=== PATIENT | female | born 1970 | race African-American/Black ===

== ENCOUNTER 2016-06-07 10:32 | Emergency (ER) | payer OTHER ==
[2016-06-07 11:04] LABS: HEMATOCRIT 41.6 % (36.0-48.0); HEMOGLOBIN 14.5 g/dL (12-16); MCH 30.5 pg (26.0-34.0); MCHC 34.9 g/dL (31.0-37.0); MCV 87.4 fL (80.0-100.0); MEAN PLATELET VOLUME 10.3 fL (7.4-10.4); PLATELET COUNT 310 10x3/uL (130-400); RBC 4.76 10x6/uL (4.00-5.40); RDW 12.9 % (11.5-14.5); WBC 12.6 10x3/uL (4.8-10.8)
[2016-06-07 11:24] LABS: ALBUMIN 3.9 g/dL (3.4-5.0); BILIRUBIN - TOTAL 0.68 mg/dL (0.2-1.3); CALCIUM 9.5 mg/dL (8.5-10.1); CARBON DIOXIDE 26.6 mmol/L (21.0-32.0); POTASSIUM - SERUM 3.6 mmol/L (3.5-5.1)
[2016-06-07 12:04] LABS: EOSINOPHILS 2 % (0-7); LYMPHOCYTES 45 % (15-50); MONOCYTES 7 % (2-11); NEUTROPHILS 43 % (40-80); PLATELET ESTIMATE NORMAL
== END 2016-06-07 14:05 | disposition home or self-care (01) ==
LOC: D.ER 10:32
PROVIDERS: Family Medicine
DX: J44.1 Chronic obstructive pulmonary disease with (acute) exacerbation (principal); I10 Essential (primary) hypertension; M26.609 Unspecified temporomandibular joint disorder, unspecified side

== ENCOUNTER 2016-12-10 10:27 | Emergency (ER) | payer MEDICAID ==
[2016-12-10 11:02] LABS: APPEARANCE CLEAR (CLEAR); BILIRUBIN NEGATIVE (NEGATIVE); COLOR STRAW (YELLOW); GLUCOSE NEGATIVE (NEGATIVE); KETONE NEGATIVE (NEGATIVE); NITRITE NEGATIVE (NEGATIVE); PROTEIN NEGATIVE (NEGATIVE); SPECIFIC GRAVITY 1.005 (1.005-1.020); UROBILINOGEN NORMAL (NORMAL)
[2016-12-10 11:09] LABS: UDS - AMPHET NEGATIVE QUAL (NEGATIVE); UDS - BARB NEGATIVE QUAL (NEGATIVE); UDS - BENZO NEGATIVE QUAL (NEGATIVE); UDS - COCAINE POSITIVE QUAL (NEGATIVE); UDS - OPIATE NEGATIVE QUAL (NEGATIVE); UDS - PCP NEGATIVE QUAL (NEGATIVE); UDS - THC NEGATIVE QUAL (NEGATIVE)
[2016-12-10 11:10] LABS: BASOPHILS 0.2 % (0-2); EOSINOPHILS 0.9 % (0-7); HEMATOCRIT 42.6 % (36.0-48.0); IMMATURE GRANULOCYTES 0.4 % (0-5); LYMPHOCYTES 27.6 % (15-50); MCH 31.3 pg (26.0-34.0); MCHC 35.2 g/dL (31.0-37.0); MCV 88.8 fL (80.0-100.0); MEAN PLATELET VOLUME 9.9 fL (7.4-10.4); MONOCYTES 10.7 % (2-11); NEUTROPHILS 60.2 % (40-80); PLATELET COUNT 281 10x3/uL (130-400); RDW 14.1 % (11.5-14.5); WBC 9.3 10x3/uL (4.8-10.8)
[2016-12-10 11:20] LABS: ANION GAP 13.1 mmol/L (8-16); BILIRUBIN - TOTAL 0.28 mg/dL (0.2-1.3); CALCIUM 9.5 mg/dL (8.5-10.1); CARBON DIOXIDE 30.9 mmol/L (21.0-32.0); CREATININE - SERUM 0.9 mg/dL (0.6-1.3); PROTEIN - SERUM 8.2 g/dL (6.4-8.2)
== END 2016-12-10 12:40 | disposition home or self-care (01) ==
LOC: D.ER 10:27
PROVIDERS: Emergency Medicine
DX: F33.9 Major depressive disorder, recurrent, unspecified (principal); F41.9 Anxiety disorder, unspecified; R45.851 Suicidal ideations; J44.9 Chronic obstructive pulmonary disease, unspecified; I10 Essential (primary) hypertension

== ENCOUNTER 2017-07-19 07:37 | Emergency (ER) | payer OTHER ==
[2017-07-19 09:53] LABS: BASOPHILS 0.5 % (0-2); EOSINOPHILS 4.7 % (0-7); HEMATOCRIT 41.4 % (36.0-48.0); HEMOGLOBIN 14.3 g/dL (12-16); IMMATURE GRANULOCYTES 0.4 % (0-5); LYMPHOCYTES 26.9 % (15-50); MCH 30.4 pg (26.0-34.0); MCHC 34.5 g/dL (31.0-37.0); MCV 87.9 fL (80.0-100.0); MEAN PLATELET VOLUME 10.6 fL (7.4-10.4); MONOCYTES 13.4 % (2-11); NEUTROPHILS 54.1 % (40-80); PLATELET COUNT 227 10x3/uL (130-400); RBC 4.71 10x6/uL (4.00-5.40); WBC 7.9 10x3/uL (4.8-10.8)
[2017-07-19 10:11] LABS: ALBUMIN 2.8 g/dL (3.4-5.0); ALKALINE PHOSPHATASE 66 U/L (46-116); ALT (SGPT) 21 U/L (10-68); CALC OSMOLALITY 280 mosm/kg (275-300); CALCIUM 8.7 mg/dL (8.5-10.1); CARBON DIOXIDE 27.3 mmol/L (21.0-32.0); CHLORIDE - SERUM 108 mmol/L (98-107); CREATININE - SERUM 0.8 mg/dL (0.6-1.3); GLUCOSE 71 mg/dL (74-106); POTASSIUM - SERUM 4.1 mmol/L (3.5-5.1); PROTEIN - SERUM 6.7 g/dL (6.4-8.2); SODIUM 142 mmol/L (136-145); UREA NITROGEN 13 mg/dL (7-18); eGFR NON AFRICAN AMERICAN 82 mL/min (90-120)
[2017-07-19 10:11] LABS: UDS - AMPHET NEGATIVE QUAL (NEGATIVE); UDS - BARB NEGATIVE QUAL (NEGATIVE); UDS - BENZO NEGATIVE QUAL (NEGATIVE); UDS - COCAINE POSITIVE QUAL (NEGATIVE); UDS - OPIATE NEGATIVE QUAL (NEGATIVE); UDS - PCP NEGATIVE QUAL (NEGATIVE); UDS - THC NEGATIVE QUAL (NEGATIVE)
[2017-07-19 10:18] LABS: APPEARANCE HAZY (CLEAR); BILIRUBIN NEGATIVE (NEGATIVE); COLOR YELLOW (YELLOW); GLUCOSE NEGATIVE (NEGATIVE); KETONE NEGATIVE (NEGATIVE); NITRITE NEGATIVE (NEGATIVE); PROTEIN NEGATIVE (NEGATIVE); SPECIFIC GRAVITY 1.025 (1.005-1.020); UROBILINOGEN NORMAL (NORMAL)
[2017-07-19 10:20] LABS: CREATINE KINASE 129 UL (21-215); LIPASE 201 U/L (73-393); PHENYTOIN (DILANTIN) 0.6 ug/mL (10.0-20.0); PRO BNP 76 pg/mL (0-125); TROPONIN-I 0.022 ng/mL (0.000-0.060)
== END 2017-07-19 10:35 | disposition home or self-care (01) ==
LOC: D.ER 07:37
PROVIDERS: Family Medicine
DX: S29.012A Strain of muscle and tendon of back wall of thorax, initial encounter (principal); X58.XXXA Exposure to other specified factors, initial encounter; Y93.9 Activity, unspecified; Y92.9 Unspecified place or not applicable; F14.10 Cocaine abuse, uncomplicated

== ENCOUNTER 2017-10-05 21:11 | Emergency (ER) | payer OTHER ==
[~2017-10-05] VITALS: Ht 157.5 cm; Wt 52.3 kg
[2017-10-05 21:24] VITALS: Ht 157.5 cm; Wt 52.3 kg
[2017-10-05] MEDS ORDERED: CATAPRES0.1 MG PO (21:24)
[2017-10-05] MEDS ORDERED: SEROQUEL300 MG PO (21:27)
[2017-10-05] MEDS ORDERED: SEROQUEL300 MG (21:27)
[2017-10-05] MEDS ORDERED: DILANTIN100 MG PO (21:27)
[2017-10-05] MEDS ORDERED: ULTRAM50 MG PO (23:33)
[2017-10-05] MEDS ORDERED: CLEOCIN HCL300 MG PO (23:33)
[2017-10-05] MEDS ORDERED: FLAGYL500 MG PO (23:33)
[2017-10-06 00:38] VITALS: BP 163/86
== END 2017-10-06 00:22 | disposition home or self-care (01) ==
LOC: D.ER 21:11
DX: K05.00 Acute gingivitis, plaque induced (principal); K08.89 Other specified disorders of teeth and supporting structures; I10 Essential (primary) hypertension; F17.200 Nicotine dependence, unspecified, uncomplicated

== ENCOUNTER 2018-03-18 10:58 | Emergency (ER) | payer MEDICAID ==
[~2018-03-18] VITALS: Ht 157.5 cm; Wt 60.0 kg
[~2018-03-18 10:58] MED LIST: CATAPRES0.1 MG PO; CLEOCIN HCL300 MG PO; DILANTIN100 MG PO; FLAGYL500 MG PO; SEROQUEL300 MG; SEROQUEL300 MG PO; ULTRAM50 MG PO
[2018-03-18 11:02] VITALS: Ht 157.5 cm; Wt 60.0 kg
[2018-03-18 12:02] LABS: BASOPHILS 0.5 % (0-2); EOSINOPHILS 0 % (0-7); HEMATOCRIT 51.7 % (36.0-48.0); HEMOGLOBIN 18.1 g/dL (12-16); IMMATURE GRANULOCYTES 1.1 % (0-5); LYMPHOCYTES 32.6 % (15-50); MCH 30.5 pg (26.0-34.0); MEAN PLATELET VOLUME 10.1 fL (7.4-10.4); MONOCYTES 11.7 % (2-11); NEUTROPHILS 54.1 % (40-80); PLATELET COUNT 234 10x3/uL (130-400); RBC 5.94 10x6/uL (4.00-5.40); RDW 13.4 % (11.5-14.5); WBC 9.6 10x3/uL (4.8-10.8)
[2018-03-18 12:14] LABS: APPEARANCE CLEAR (CLEAR); COLOR YELLOW (YELLOW); GLUCOSE NEGATIVE (NEGATIVE); KETONE NEGATIVE (NEGATIVE); NITRITE NEGATIVE (NEGATIVE); PROTEIN NEGATIVE (NEGATIVE); SPECIFIC GRAVITY 1.015 (1.005-1.020); UROBILINOGEN NORMAL (NORMAL)
[2018-03-18 12:14] LABS: ALBUMIN 2.8 g/dL (3.4-5.0); ALKALINE PHOSPHATASE 53 U/L (46-116); ALT (SGPT) 18 U/L (10-68); BILIRUBIN - TOTAL 0.15 mg/dL (0.2-1.3); CALC OSMOLALITY 278 mosm/kg (275-300); CALCIUM 8.7 mg/dL (8.5-10.1); CARBON DIOXIDE 23.8 mmol/L (21.0-32.0); CHLORIDE - SERUM 105 mmol/L (98-107); CREATININE - SERUM 0.9 mg/dL (0.6-1.3); GLUCOSE 85 mg/dL (74-106); MAGNESIUM - SERUM 1.9 mg/dL (1.8-2.4); PHENYTOIN (DILANTIN) < 0.5 ug/mL (10.0-20.0); POTASSIUM - SERUM 4.8 mmol/L (3.5-5.1); PROTEIN - SERUM 6.6 g/dL (6.4-8.2); SODIUM 139 mmol/L (136-145); UREA NITROGEN 17 mg/dL (7-18); eGFR NON AFRICAN AMERICAN 71 mL/min (90-120)
[2018-03-18 12:15] LABS: BILIRUBIN NEGATIVE (NEGATIVE)
[2018-03-18 12:24] LABS: UDS - AMPHET NEGATIVE QUAL (NEGATIVE); UDS - BARB NEGATIVE QUAL (NEGATIVE); UDS - BENZO NEGATIVE QUAL (NEGATIVE); UDS - COCAINE POSITIVE QUAL (NEGATIVE); UDS - OPIATE NEGATIVE QUAL (NEGATIVE); UDS - PCP NEGATIVE QUAL (NEGATIVE); UDS - THC NEGATIVE QUAL (NEGATIVE)
[2018-03-18] MEDS ORDERED: DILANTIN100 MG PO (12:48)
[2018-03-18 16:54] LABS: PHENYTOIN (DILANTIN) < 10.0 ug/mL (10.0-20.0)
[2018-03-18 19:13] VITALS: BP 152/96
== END 2018-03-18 19:16 | disposition home or self-care (01) ==
LOC: D.ER 10:58
PROVIDERS: Emergency Medicine
DX: G40.909 Epilepsy, unspecified, not intractable, without status epilepticus (principal); F14.10 Cocaine abuse, uncomplicated; Z91.14 Patient's other noncompliance with medication regimen; I10 Essential (primary) hypertension; F17.200 Nicotine dependence, unspecified, uncomplicated

== ENCOUNTER 2018-04-13 22:08 | Observation (INO) | payer MEDICAID ==
[~2018-04-13] VITALS: Ht 157.5 cm; Wt 60.0 kg
--- NOTE | ~2018-04-13 | HEMODYNAMI ---
PATIENT:ANA GRACE MEDICAL RECORD: [id number] : 72 [facility] ADMISSION DATE: 04/13/18 Generatedon:04/15/20187:33 Patient name: ANA GRACE Patient #: [id number] SSN: D OB: 1970 Date of study: 04/15/2018 Page: Of Hemodynamic Procedure Report Patient Data Patient Demographics Procedure consent was obtained First Name: ANA Gender: Female Last Name: SANJAY : 1970 Middle Initial: M Age: 47 year(s) Patient #: [id number] Race: Black Additional ID: [id number] Contact details [address]: [address] [place] [address] [address] State: [place] City: [place] Zip code: [address] Past Medical History Allergies Allergen Reaction Date Comments Reported Penicillins 04/15/2018 Admission Admission Data Admission Date: 04/13/2018 Admission Time: 23:38 Room #: [facility] Procedure Procedure Types Cath Procedure Diagnostic Procedure C LHC w/Coronaries Procedure Description Procedure Date Procedure Date: 04/15/2018 Procedure Start Time: 7:20 Procedure End Time: 7:33 Procedure Staff Name Function Kai Fernandez MD Performing Physician Mary Beth Campbell RT Monitor Marlee Brandon RN Nurse Iram Guardado RT Scrub Fani Carlin RT Scrub Procedure Data Cath Procedure Fluoroscopy Diagnostic fluoroscopy Total fluoroscopy Time: 2.5 time: 2.5 min min Diagnostic fluoroscopy Total fluoroscopy dose: 202 dose: 202 mGy mGy Contrast Material Contrast Material Type Amount (ml) Isovue 300 65 Entry Location Entry Primary Successful Side Size Upsize Upsize Entry Closure Finney ccessful Closure Location (Fr) 1 (Fr) 2 (Fr) Remarks Device Remarks Radial Right 6 Fr Mechanical artery Short Compression Estimated blood loss: 5 ml Diagnostic catheters Device Type Used For End Catheter Placement DIAGNOSTIC Nixon 110cm 5 LV Angiography Fr catheter ([id number]) DIAGNOSTIC Nixon 110cm 5 Left Coronary Fr catheter ([id number]) Angiography DIAGNOSTIC Nixon 110cm 5 Right Coronary Fr catheter ([id number]) Angiography Procedure Complications No complications Procedure Medications Medication Administration Route Dosage 0.9% NaCl I.V. 100 ml/hr Oxygen etCO2 Nasal cannula 2 l/min Lidocaine 2% Heparin Flush Bag added to field 2 bags (1000units/500ml NS) Radial Cocktail added to field 1 syringe (Verapomil 2mg/Nitro 400mcg/Heparin 1500units) Versed I.V. 2 mg Fentanyl I.V. 50 mcg Versed I.V. 1 mg Fentanyl I.V. 25 mcg Hemodynamics Rest Heart Rate: 65 (bpm) Pressure Samples Time Site Value (mmHg) Purpose Heart Use Rate(bpm) 7:23 LV 112/-3,11 EDP 87 7:24 AO 121/65(88) Pullback 80 7:24 LV 108/-4,11 Pullback 80 Gradients Valve Time Site 1 Site 2 Mean SEP/DFP Peak To Heart Use (mmHg) (sec/min) Peak Rate (mmHg) (bpm) Aortic 7:24 LV AO 0 6 0 80 108/-4,11 121/65(88) Calculations Valve P-P Mean Valve Index Valve Source Name Gradient Area Flow (cm2) Aortic 0 0 0 0 Snapshots Pre Cath Intra NCS Post Cath Vital Signs Time Heart Resp SPO2 etCO2 NIBP (mmHg) Rhythm Pain Sedation Rate (ipm) (%) (mmHg) Status Level (bpm) 7:05:58 64 16 100 37.8 172/95(142) NSR 0 (11) 10(A) , No pain 7:10:14 69 19 100 37.8 161/95(131) NSR 0 (11) 10(A) , No pain 7:14:30 67 16 100 21.2 146/85(117) NSR 0 (11) 10(A) , No pain 7:18:50 67 12 100 37.1 145/77(107) NSR 0 (11) 10(A) , No pain 7:23:09 75 12 100 34 122/78(94) NSR 0 (11) 10(A) , No pain 7:27:21 72 11 99 29.5 118/72(99) NSR 0 (11) 9(A) , No pain 7:31:30 72 11 100 11.3 125/74(105) NSR 0 (11) 10(A) , No pain Medications Time Medication Route Dose Verified Delivered Reason Notes Eff ectiveness by by 7:03:53 0.9% NaCl I.V. 100 Kai Marlee used for ml/hr Jim Brandon children's entertainer 7:04:00 Oxygen etCO2 2 l/min Kai Marlee used for Nasal Jim Brandon procedure cannula RN 7:04:34 Lidocaine 2% Kai Kai used for Jim Fernandez MD procedure 7:04:39 Heparin Flush added 2 bags Kai Kai used for Bag to Jim Fernandez MD procedure (1000units/500ml field NS) 7:04:48 Radial Cocktail added 1 Kai Kai used for (Verapomil to syringe Jim Fernandez MD procedure 2mg/Nitro field 400mcg/Heparin 1500units) 7:17:14 Versed I.V. 2 mg Kai Marlee for Jim Brandon sedation RN 7:17:21 Fentanyl I.V. 50 mcg Kai Marlee for Jim Brandon sedation RN 7:23:00 Versed I.V. 1 mg Kai Marlee for Jim Brandon sedation RN 7:23:05 Fentanyl I.V. 25 mcg Kai Marlee for Jim Brandon sedation fish hatchery superintendent Log Time Note 6:42:48 Time tracking: Regular hours (M-F 7:00 - 5:00) 6:42:53 Plan of Care:Hemodynamics will remain stable., Cardiac rhythm will remain stable., Comfort level will be maintained., Respiratory function will remain adequate., Patient/ family verbilizes understanding of procedure., Procedure tolerated without complication., Recovers from procedure without complications.. 6:44:23 Mary Beth Counts RT(R) sent for patient. Start room use. 6:55:39 Patient received from Med II to CCL 1 Alert and oriented. Tansferred to table in Supine position. 6:55:41 Warm blankets applied, and yunior hugger turned on for patient comfort. 6:55:41 Correct patient and procedure confirmed by team. 6:55:43 Signed procedure consent form obtained from patient. 6:55:44 ECG and BP/O2 sat monitors applied to patient. 6:58:44 Full Disclosure recording started 7:00:39 Rhythm: sinus rhythm 7:00:40 Vital chart was started 7:00:47 Baseline sample Acquired. 7:00:50 Baseline sample Acquired. 7:01:00 H&P Date Dictated: 04/15/2018 Within 30 days and on chart.. 7:01:02 Pre-procedure instructions explained to patient. 7:01:02 Pre-op teaching completed and patient verbalized understanding. 7:01:10 Family unavailable. 7:01:15 Patient NPO since Midnight. 7:01:25 Patient allergic to Penicillins 7:01:28 Is the patient allergic to Iodine/contrast media? No. 7:01:46 Was the patient premedicated? No 7:01:50 Is patient on blood thinner?No 7:01:52 Patient diabetic? No. 7:01:53 ----Pre-sedation anethsthesia assessment.---- 7:01:56 Previous problem with sedation/anesthesia? No ? 7:02:00 Snore? No 7:02:02 Sleep apnea? No 7:02:04 Deviated septum? No 7:02:06 Opens mouth fully? Yes 7:02:07 Sticks out tongue? Yes 7:02:10 Airway obstruction? No ? 7:02:14 Dentures? No ? 7:02:22 Pre procedure: right dorsailis pedis pulse 1+ Palpable, but thready & weak; easily obliterated 7:02:27 Modified Shawn's test Ulnar < 7 seconds 7:02:31 Patient pain scale 0/10 ?. 7:02:42 IV patent on arrival in left antecubital with 0.9% NaCl at 10ml/hr. 7:03:04 Lab results completed and on chart. 7:03:07 Right Radial & Right Groin area was prepped with chlora-prep and draped in sterile fashion 7:03:08 Alarms reviewed by R. N. 7:03:09 Sharps counted by scrub and verified by R.N. 7:03:14 Physician paged 7:03:53 0.9% NaCl 100 ml/hr I.V. was administered by Marlee Brandon RN; used for procedure; 7:04:00 Oxygen 2 l/min etCO2 Nasal cannula was administered by Marlee Brandon RN; used for procedure; 7:04:34 Lidocaine 2% was administered by Kai Fernandez MD; used for procedure; 7:04:39 Heparin Flush Bag (1000units/500ml NS) 2 bags added to field was administered by Kai Fernandez MD; used for procedure; 7:04:48 Radial Cocktail (Verapomil 2mg/Nitro 400mcg/Heparin 1500units) 1 syringe added to field was administered by Kai Fernandez MD; used for procedure; 7:06:03 Use device set Radial Dx or PCI 7:06:04 ACIST Syringe (26912) opened to sterile field. 7:06:05 Medline Cath Pack ([id number]) opened to sterile field. 7:06:05 Bag Decanter (2002S) opened to sterile field. 7:06:06 DIAGNOSTIC WIRE .035 260cm J wire (978146) opened to sterile field. 7:06:06 ACIST Hand Control (05941) opened to sterile field. 7:06:07 ACIST Manifold (21623) opened to sterile field. 7:06:07 Tegaderm 4 x 4 (1626W) opened to sterile field. 7:06:08 MBrace Wrist Support ([id number]) opened to sterile field. 7:06:09 SHEATH 6FR Slender (44-3860) opened to sterile field. 7:16:34 Final Timeout: patient, procedure, and site verified with staff and physician. All members of the team are in agreement. 7:16:36 Right Radial site verified by team. 7:16:40 Fire Safety Assessment: A--An alcohol-based skin anteseptic being used preoperatively., C--Open oxygen or nitrous oxide is being used., D--An ESU, laser, or fiber-optic light is being used. 7:16:44 Physical assessment completed. ASA score P 2 - A patient with mild systemic disease as per Kai Fernandez MD. 7:16:47 Sedation plan: IV Moderate Sedation Medication:Versed, Fentanyl 7:17:14 Versed 2 mg I.V. was administered by Marlee Brandon RN; for sedation; 7:17:21 Fentanyl 50 mcg I.V. was administered by Marlee Brandon RN; for sedation; 7:19:45 Procedure started. 7:19:50 Zero performed for pressure channel P1 7:20:25 Local anesthetic to right radial artery with Lidocaine 2% by aKi Fernandez MD.INITIAL ACCESS ONLY 7:21:35 A 6 Fr Short sheath was inserted into the Right Radial artery 7:22:30 A DIAGNOSTIC Nixon 110cm 5 Fr catheter ([id number]) was advanced over the wire and used for LV Angiography. 7:23:00 Versed 1 mg I.V. was administered by Marlee Brandon RN; for sedation; 7:23:05 Fentanyl 25 mcg I.V. was administered by Marlee Brandon RN; for sedation; 7::23 LV gram done using MELENDEZ 7:24:24 LV hemodynamics recorded. 7::27 Injector settings: Ml/sec: 7, Volume: 15, 7:24:33 EF : 60 % 7:25:11 A DIAGNOSTIC Nixon 110cm 5 Fr catheter (870674) was advanced over the wire and used for Left Coronary Angiography. 7:28:03 A DIAGNOSTIC Nixon 110cm 5 Fr catheter (734851) was advanced over the wire and used for Right Coronary Angiography. 7:28:42 Catheter removed. 7:29:00 Sheath removed intact; hemostasis achieved with Mechanical Compression to the Right Radial artery. 7:29:01 Procedure ended.(Physican Out) 7:29:12 Fluoroscopy time 02.50 minutes. 7:29:17 Fluoroscopy dose: 202 mGy 7:29:17 Flurop Dose total: 202 7:29:21 Contrast amount:Isovue 300 65ml. 7:29:23 Sharps counted by scrub and verified by R.N. 7:29:26 TR band inflated with 12cc of air. 7:29:28 Insertion/operative site no bleeding no hematoma. 7:29:41 Post right radial artery:stable, clean and dry 7:29:42 Post Procedure Pulses reassessed and unchanged 7:29:45 Post-procedure physical assessment completed. ASA score P 2 - A patient with mild systemic disease as per Kai Fernandez MD. 7:29:47 Post procedure rhythm: unchanged. 7:29:49 Estimated blood loss: 5 ml 7:29:51 Post procedure instruction explained to patient.Patient verbalizes understanding. 7:29:51 Patient needs reinforcement of post procedure teaching. 7:30:12 Procedure Complication : No complications 7:30:16 See physician's report for complete and final results. 7:30:49 TR BAND Standard ([id number]) opened to sterile field. 7:31:16 Procedure and supply charges have been captured, reviewed, submitted and are correct. 7:33:27 Vital chart was stopped 7:33:30 Report given to PCU. 7:33:32 Patient transfered to PCU with Bed. 7:33:40 Procedure ended. 7:33:40 Full Disclosure recording stopped 7:33:44 End room use (Document Last) Device Usage Item Name Manufacture Quantity Catalog Hospital Part Current Minimal Lot# / Number Charge Number Stock Stock Serial# Code ACIST Acist 1 35225 660037 789897 674218 20 Syringe Medical (48281) Systems Inc Medline Medline 1 [id number] 686654 35957 214222 5 Cath Pack ([id number]) Bag Microtek 1 2001S 994271 01304 718429 5 Decanter Medical Inc. (2001S) DIAGNOSTIC St Jarrell 1 494845 936458 886221 754951 30 WIRE .035 260cm J wire (070013) ACIST Hand Acist 1 82063 435299 428996 553609 5 Control Medical (45000) Systems Inc ACIST Acist 1 99399 672381 096371 998968 5 Manifold Medical (36256) Systems Inc Tegaderm 4 3M 1 1626W 097228 553855 561254 5 x 4 (1626W) MBrace Advanced 1 140-0250-00 179198 83094 005054 5 Wrist Vascular Support Dynamics ([id number]) SHEATH 6FR Terumo 1 [id number] 815288 671403 719745 5 Slender (80-1060) DIAGNOSTIC Terumo 1 40-8263 788479 303845 496103 5 Nixon 110cm 5 Fr catheter (452270) TR BAND Terumo 1 [id number] 653588 689838 542456 40 Standard ([id number]) Signature Audit Mallory Stage Time Signature Unsigned Intra-Procedure 04/15/2018 Mary Beth 7:33:54 AM Counts RT(R) Signatures Monitor : Mary Beth Signature : Counts RT Date : Time : [facility] [address] [place] [address]
[2018-04-13 22:26] LABS: BASOPHILS 0.2 % (0-2); EOSINOPHILS 0 % (0-7); HEMATOCRIT 38.3 % (36.0-48.0); HEMOGLOBIN 13.3 g/dL (12-16); IMMATURE GRANULOCYTES 0.2 % (0-5); MCH 29.7 pg (26.0-34.0); MCHC 34.7 g/dL (31.0-37.0); MCV 85.5 fL (80.0-100.0); MEAN PLATELET VOLUME 9.9 fL (7.4-10.4); MONOCYTES 11.6 % (2-11); PLATELET COUNT 243 10x3/uL (130-400); RBC 4.48 10x6/uL (4.00-5.40); RDW 13.6 % (11.5-14.5); WBC 9.9 10x3/uL (4.8-10.8)
[2018-04-13 22:30] VITALS: BP 130/72
[2018-04-13 22:34] LABS: APTT 33.6 SECONDS (22.8-39.4); INR 1.03 (0.85-1.17)
[2018-04-13 22:35] LABS: D-DIMER-QUANTITATIVE < 0.27 ug/mLFEU (0.20-0.54)
[2018-04-13 23:05] LABS: ALBUMIN 3.2 g/dL (3.4-5.0); ALKALINE PHOSPHATASE 88 U/L (46-116); ALT (SGPT) 17 U/L (10-68); CALC OSMOLALITY 284 mosm/kg (275-300); CALCIUM 8.6 mg/dL (8.5-10.1); CARBON DIOXIDE 25.5 mmol/L (21.0-32.0); CHLORIDE - SERUM 106 mmol/L (98-107); CREATININE - SERUM 1.3 mg/dL (0.6-1.3); GLUCOSE 96 mg/dL (74-106); PROTEIN - SERUM 7.2 g/dL (6.4-8.2); SODIUM 141 mmol/L (136-145); UREA NITROGEN 23 mg/dL (7-18); eGFR NON AFRICAN AMERICAN 47 mL/min (90-120)
[2018-04-13 23:16] LABS: CKMB 1.2 U/L (0.0-3.6); CREATINE KINASE 155 UL (21-215); TROPONIN-I 0.035 ng/mL (0.000-0.060)
[2018-04-14 00:41] VITALS: BP 176/89; BMI 22.9
--- NOTE | 2018-04-14 00:48 | NUR ---
RECIEVED REPORT FROM NURIA IN ER. ARRIVED TO THE FLOOR AT 0000. TRANSFERED SELF TO BED. ALERT AND ORIENTED X4. DENIES ANY PAIN AT THIS TIME. ASSESSMENT COMPLETED.
[2018-04-14 04:00] VITALS: BP 118/68
[2018-04-14 06:12] LABS: CKMB 0.8 U/L (0.0-3.6); CREATINE KINASE 126 UL (21-215); TROPONIN-I 0.044 ng/mL (0.000-0.060)
[2018-04-14 06:24] LABS: BASOPHILS 0.4 % (0-2); EOSINOPHILS 0 % (0-7); HEMATOCRIT 38.4 % (36.0-48.0); HEMOGLOBIN 13.1 g/dL (12-16); IMMATURE GRANULOCYTES 0.4 % (0-5); LYMPHOCYTES 40.5 % (15-50); MCH 29.5 pg (26.0-34.0); MCHC 34.1 g/dL (31.0-37.0); MCV 86.5 fL (80.0-100.0); MEAN PLATELET VOLUME 10.5 fL (7.4-10.4); NEUTROPHILS 45.7 % (40-80); PLATELET COUNT 249 10x3/uL (130-400); RBC 4.44 10x6/uL (4.00-5.40); RDW 13.8 % (11.5-14.5); WBC 8.4 10x3/uL (4.8-10.8)
[2018-04-14 06:29] LABS: ANION GAP 16.3 mmol/L (8-16); CALCIUM 8.5 mg/dL (8.5-10.1); CARBON DIOXIDE 23.2 mmol/L (21.0-32.0); CREATININE - SERUM 1.2 mg/dL (0.6-1.3); POTASSIUM - SERUM 4.5 mmol/L (3.5-5.1)
--- NOTE | 2018-04-14 08:00 | NUR ---
TELEMETRY SR. STATES RELIEF FROM C/P WITH NITRO. WILL CONT. PLAN OF CARE.
[2018-04-14 08:06] VITALS: BP 123/58
--- NOTE | 2018-04-14 08:16 | NUR ---
BILAT SCDS ON.
--- NOTE | 2018-04-14 10:11 | NUR ---
CONSENTS SIGNED FOR [facility].
[2018-04-14 11:19] LABS: CKMB 0.9 U/L (0.0-3.6); CREATINE KINASE 106 UL (21-215); TROPONIN-I 0.035 ng/mL (0.000-0.060)
[2018-04-14 13:03] VITALS: Ht 157.5 cm; Wt 60.0 kg
[2018-04-14 13:06] VITALS: BP 126/83
--- NOTE | 2018-04-14 15:40 | NUR ---
URONE SPECIMEN COLLECTED AND TAKEN TO LAB.
[2018-04-14 16:02] LABS: COLOR YELLOW (YELLOW)
[2018-04-14 16:03] LABS: APPEARANCE CLOUDY (CLEAR); BILIRUBIN NEGATIVE (NEGATIVE); GLUCOSE NEGATIVE (NEGATIVE); KETONE NEGATIVE (NEGATIVE); NITRITE NEGATIVE (NEGATIVE); PROTEIN TRACE mg/dL (NEGATIVE); UROBILINOGEN NORMAL (NORMAL)
--- NOTE | 2018-04-14 16:03 | NUR ---
NITOR GIVEN FOR C/O C/P. EKG DONE AND CHARTED. WILL CONT. TO MONITOR.
[2018-04-14 16:04] LABS: UDS - AMPHET NEGATIVE QUAL (NEGATIVE); UDS - BARB NEGATIVE QUAL (NEGATIVE); UDS - BENZO NEGATIVE QUAL (NEGATIVE); UDS - COCAINE POSITIVE QUAL (NEGATIVE); UDS - OPIATE POSITIVE QUAL (NEGATIVE); UDS - PCP NEGATIVE QUAL (NEGATIVE); UDS - THC NEGATIVE QUAL (NEGATIVE)
[2018-04-14 17:55] VITALS: BP 111/75
--- NOTE | 2018-04-14 19:33 | NUR ---
RECIEVED UP IN BED WITH EYES OPEN AND TV ON. ALERT AND ORIENTED X4. UP AD DANII TO BR. DENIES ANY NEEDS OR PAIN.
[2018-04-14 20:24] VITALS: BP 129/64
[2018-04-15 01:24] VITALS: BP 138/66
[2018-04-15 05:02] VITALS: BP 117/64
[2018-04-15 06:06] LABS: BASOPHILS 0.4 % (0-2); EOSINOPHILS 0 % (0-7); HEMOGLOBIN 14.1 g/dL (12-16); IMMATURE GRANULOCYTES 0.2 % (0-5); LYMPHOCYTES 40.2 % (15-50); MCHC 34.4 g/dL (31.0-37.0); MCV 87.2 fL (80.0-100.0); MEAN PLATELET VOLUME 10.1 fL (7.4-10.4); MONOCYTES 14.4 % (2-11); NEUTROPHILS 44.8 % (40-80); PLATELET COUNT 215 10x3/uL (130-400); RDW 13.9 % (11.5-14.5)
[2018-04-15 06:27] LABS: ANION GAP 12.2 mmol/L (8-16); CALCIUM 9.1 mg/dL (8.5-10.1); CARBON DIOXIDE 25.1 mmol/L (21.0-32.0); CREATININE - SERUM 0.9 mg/dL (0.6-1.3); POTASSIUM - SERUM 4.3 mmol/L (3.5-5.1)
[2018-04-15 06:41] LABS: WBC 5.1 10x3/uL (4.8-10.8)
[2018-04-15 07:03] VITALS: BP 156/78
--- NOTE | 2018-04-15 07:10 | NUR ---
PT TO TUBE ROOM CASHIER VIA BED
--- NOTE | 2018-04-15 08:00 | NUR ---
RECEIVED PT BACK FROM [facility] VIA BED VSS PPPX4 RT WRIST C/D/AND TRBAND INTACT WILL CONTINUE TO MONITOR
[2018-04-15] MEDS ORDERED: DILANTIN100 MG PO (10:26)
--- NOTE | 2018-04-15 16:00 | NUR ---
REVIWED DISCHARGE INSTRUCTIONS WITH PT STATES UNDERSTANDING COPY GIVEN SALINE LOCK DCD TO LAC WITH IV CATHETER INTACT SITE FREE OF REDNESS OR EDEMA PT DISCHARGED HOME IN STABLE CONDITION WITH ALL PERSONAL BELONGINGS LEFT UNIT VIA W/C
--- NOTE | 2018-04-16 08:55 | MORECARE ---
CASE MANAGEMENT DISCHARGE SUMMARY PATIENT: ANA GRACE UNIT: [id number] ADM DATE: 04/13/18 AGE: 47 : 72 SEX: F ROOM/BED: D.2668 AUTHOR: ARNAUD BRODERICK PHYSICIAN: REFERRING PHYSICIAN: ANA PAULA BETANCOURT MD DATE OF SERVICE: 04/16/18 Discharge Plan Patient Name: ANA GRACE Facility: [facility]:[place] : 1970 Planned Disposition: Home Anticipated Discharge Date: 04/15/18 Discharge Date: 04/15/2018 Expected LOS: 2 Initial Reviewer: [email or web address] Initial Review Date: 04/16/2018 Generated: 04/16/18 9:54 am Patient Name: ANA GRACE Page [id number] at 0855 All edits/amendments must be made on the electronic document DICTATION DATE: 04/16/18853 HOURLY CAREGIVER: LEXA 04/16/1854 RPT#: [id number] DC DATE:04/15/18 STATUS: DIS IN [facility] [address] [place] [address] END OF REPORT
== END 2018-04-15 16:00 | disposition home or self-care (01) ==
LOC: D.ER 22:08 → OBSVTIME 23:38 → D.M2 23:38 → D.CLR 04-15 08:46 → D.M2 04-15 09:00
PROVIDERS: Emergency Medicine; Internal Medicine Cardiovascular Disease; ADMIT Internal Medicine Nephrology
DX: R07.9 Chest pain, unspecified (principal); I10 Essential (primary) hypertension; G40.909 Epilepsy, unspecified, not intractable, without status epilepticus; F31.9 Bipolar disorder, unspecified; F17.213 Nicotine dependence, cigarettes, with withdrawal; N17.9 Acute kidney failure, unspecified

== ENCOUNTER 2018-05-18 23:17 | Emergency (ER) | payer MEDICAID ==
[~2018-05-18] VITALS: Ht 157.5 cm; Wt 63.5 kg
[2018-05-18 23:24] VITALS: Ht 157.5 cm; Wt 63.5 kg
[2018-05-19] MEDS ORDERED: TAMIFLU75 MG PO (00:12)
[2018-05-19] MEDS ORDERED: CLEOCIN HCL300 MG PO (00:12)
[2018-05-19 00:33] VITALS: BP 124/82
== END 2018-05-19 00:33 | disposition home or self-care (01) ==
LOC: D.ER 23:17
DX: J11.1 Influenza due to unidentified influenza virus with other respiratory manifestations (principal)

== ENCOUNTER 2018-07-20 23:42 | Emergency (ER) | payer MEDICAID ==
[~2018-07-20] VITALS: Ht 157.5 cm; Wt 63.6 kg
[~2018-07-20 23:42] MED LIST changes: +TAMIFLU75 MG PO
[2018-07-20 23:47] VITALS: Ht 157.5 cm; Wt 63.6 kg
[2018-07-20] MEDS ORDERED: PROCARDIA10 MG PO (23:52)
[2018-07-21] MEDS ORDERED: VOLTAREN75 MG PO (00:13)
[2018-07-21 01:18] VITALS: BP 122/76
== END 2018-07-21 01:18 | disposition home or self-care (01) ==
LOC: D.ER 23:42
DX: M54.9 Dorsalgia, unspecified (principal)

== ENCOUNTER 2018-09-19 13:43 | Emergency (ER) | payer MEDICAID ==
[~2018-09-19] VITALS: Ht 157.5 cm; Wt 64.5 kg
[~2018-09-19 13:43] MED LIST changes: +PROCARDIA10 MG PO; +VOLTAREN75 MG PO
[2018-09-19 13:58] VITALS: Ht 157.5 cm; Wt 64.5 kg
[2018-09-19] MEDS ORDERED: [UNRECOGNIZED DRUG - REMARK] (14:01)
[2018-09-19] MEDS ORDERED: MEDROL DOSE PACK4 MG PO (15:25)
[2018-09-19] MEDS ORDERED: MOTRIN600 MG PEG (15:25)
[2018-09-19] MEDS ORDERED: BENADRYL25 MG PO (15:25)
[2018-09-19 15:38] VITALS: BP 185/99
== END 2018-09-19 15:39 | disposition home or self-care (01) ==
LOC: D.ER 13:43
DX: M65.841 Other synovitis and tenosynovitis, right hand (principal); T63.461A Toxic effect of venom of wasps, accidental (unintentional), initial encounter; Y92.89 Other specified places as the place of occurrence of the external cause

== ENCOUNTER 2018-11-20 06:09 | Emergency (ER) | payer MEDICAID ==
[~2018-11-20] VITALS: Ht 157.5 cm; Wt 63.6 kg
[~2018-11-20 06:09] MED LIST changes: +BENADRYL25 MG PO; +MEDROL DOSE PACK4 MG PO; +MOTRIN600 MG PEG; +[UNRECOGNIZED DRUG - REMARK]
[2018-11-20 06:13] VITALS: Ht 157.5 cm; Wt 63.6 kg
[2018-11-20] MEDS ORDERED: VOLTAREN100 GM TOPICAL (06:45)
[2018-11-20] MEDS ORDERED: TYLENOL W/CODEI1 TAB PO (06:45)
[2018-11-20 07:41] VITALS: BP 133/75
== END 2018-11-20 07:28 | disposition home or self-care (01) ==
LOC: D.ER 06:09
DX: M77.9 Enthesopathy, unspecified (principal); I10 Essential (primary) hypertension

== ENCOUNTER 2018-12-05 05:25 | Day surgery (SDC) | payer MEDICAID ==
[2018-12-02 12:08] LABS: BASOPHILS 0.5 % (0-2); EOSINOPHILS 0.8 % (0-7); HEMATOCRIT 41.9 % (36.0-48.0); HEMOGLOBIN 14.3 g/dL (12-16); IMMATURE GRANULOCYTES 0.2 % (0-5); LYMPHOCYTES 34.6 % (15-50); MCH 30.2 pg (26.0-34.0); MCHC 34.1 g/dL (31.0-37.0); MCV 88.4 fL (80.0-100.0); MEAN PLATELET VOLUME 9.9 fL (7.4-10.4); MONOCYTES 8.6 % (2-11); NEUTROPHILS 55.3 % (40-80); RBC 4.74 10x6/uL (4.00-5.40); RDW 13.7 % (11.5-14.5); WBC 6.3 10x3/uL (4.8-10.8)
[2018-12-02 12:09] LABS: PLATELET COUNT 266 10x3/uL (130-400)
[2018-12-02 12:14] LABS: ANION GAP 8.1 mmol/L (8-16); CALCIUM 9.1 mg/dL (8.5-10.1); CARBON DIOXIDE 33.6 mmol/L (21.0-32.0); CREATININE - SERUM 0.9 mg/dL (0.6-1.3); POTASSIUM - SERUM 3.7 mmol/L (3.5-5.1)
[~2018-12-05] VITALS: Ht 157.5 cm; Wt 63.5 kg
[~2018-12-05 05:25] MED LIST changes: +NICOTINE TD; +PROCARDIA XL30 MG PO; +TYLENOL W/CODEI1 TAB PO; +VOLTAREN100 GM TOPICAL
[2018-12-05 06:07] VITALS: BP 112/67; Ht 157.5 cm; Wt 63.5 kg
== END 2018-12-05 10:45 | disposition home or self-care (01) ==
LOC: D.OPS 05:25 → D.PAN 07:30 → D.OPS 10:45
PROVIDERS: ATTEND Orthopaedic Surgery
DX: M65.311 Trigger thumb, right thumb (principal)

== ENCOUNTER 2019-05-21 09:40 | Emergency (ER) | payer MEDICAID ==
[~2019-05-21] VITALS: Ht 157.5 cm; Wt 63.6 kg
[2019-05-21 09:45] VITALS: Ht 157.5 cm; Wt 63.6 kg
[2019-05-21 11:06] VITALS: BP 144/85
== END 2019-05-21 11:06 | disposition home or self-care (01) ==
LOC: D.ER 09:40
DX: M79.662 Pain in left lower leg (principal); M79.661 Pain in right lower leg; I10 Essential (primary) hypertension; R01.1 Cardiac murmur, unspecified

== ENCOUNTER → 2019-06-02 13:33 | Outpatient (CLI) | payer BC ==
[2019-05-21 09:45] VITALS: BMI 25.6
== END | disposition home or self-care (01) ==
LOC: D.HCCECHO 13:30
PROVIDERS: ATTEND Internal Medicine Cardiovascular Disease
DX: I10 Essential (primary) hypertension (principal)

== ENCOUNTER 2019-06-17 16:13 | Emergency (ER) | payer MEDICAID ==
[~2019-06-17] VITALS: Ht 157.5 cm; Wt 63.6 kg
[2019-06-17 16:17] VITALS: BP 147/83; Ht 157.5 cm; Wt 63.6 kg
[2019-06-17] MEDS ORDERED: POLYTRIM EYE DR10 ML RIGHT EYE (16:47)
== END 2019-06-17 17:01 | disposition home or self-care (01) ==
LOC: D.ER 16:13
DX: H10.33 Unspecified acute conjunctivitis, bilateral (principal); I10 Essential (primary) hypertension; Z86.73 Personal history of transient ischemic attack (TIA), and cerebral infarction without residual deficits

== ENCOUNTER 2019-08-08 17:18 | Inpatient (IN) | payer BC ==
[~2019-08-08] VITALS: Ht 157.5 cm; Wt 64.1 kg
[~2019-08-08 17:18] MED LIST changes: +POLYTRIM EYE DR10 ML RIGHT EYE
[2019-08-08 17:42] VITALS: BP 142/82
[2019-08-08 17:45] LABS: BASOPHILS 0.5 % (0-2); EOSINOPHILS 1.8 % (0-7); HEMATOCRIT 42.3 % (36.0-48.0); HEMOGLOBIN 14.2 g/dL (12-16); IMMATURE GRANULOCYTES 0.3 % (0-5); LYMPHOCYTES 42.9 % (15-50); MCH 29.8 pg (26.0-34.0); MCHC 33.6 g/dL (31.0-37.0); MCV 88.9 fL (80.0-100.0); MEAN PLATELET VOLUME 11.5 fL (7.4-10.4); MONOCYTES 9.3 % (2-11); NEUTROPHILS 45.2 % (40-80); RBC 4.76 10x6/uL (4.00-5.40); RDW 14.5 % (11.5-14.5); WBC 8.7 10x3/uL (4.8-10.8)
[2019-08-08 17:49] VITALS: BP 142/82
[2019-08-08 17:54] LABS: APTT 32.3 SECONDS (22.8-39.4); INR 0.87 (0.85-1.17); PROTIME 11.8 SECONDS (11.6-15.0)
[2019-08-08 18:01] LABS: PLATELET COUNT 366 10x3/uL (130-400)
[2019-08-08 18:13] VITALS: BP 149/73
[2019-08-08 18:49] LABS: CALC OSMOLALITY 281 mosm/kg (275-300); CALCIUM 8.4 mg/dL (8.5-10.1); CARBON DIOXIDE 30.9 mmol/L (21.0-32.0); CHLORIDE - SERUM 105 mmol/L (98-107); CREATININE - SERUM 1.3 mg/dL (0.6-1.3); GLUCOSE 105 mg/dL (74-106); POTASSIUM - SERUM 3.7 mmol/L (3.5-5.1); SODIUM 140 mmol/L (136-145); UREA NITROGEN 21 mg/dL (7-18); eGFR NON AFRICAN AMERICAN 46 mL/min (90-120)
[2019-08-08 19:06] LABS: ALBUMIN 3.4 g/dL (3.4-5.0); ALKALINE PHOSPHATASE 77 U/L (30-120); ALT (SGPT) 21 U/L (10-68); BILIRUBIN - TOTAL 0.16 mg/dL (0.2-1.3); CREATINE KINASE 97 UL (21-215); MAGNESIUM - SERUM 1.9 mg/dL (1.8-2.4); PROTEIN - SERUM 6.8 g/dL (6.4-8.2); TROPONIN-I 0.021 ng/mL (0.000-0.060)
--- NOTE | 2019-08-08 20:15 | NUR ---
PT ARRIVED TO ROOM VIA W/C. AMBULATORY, GAIT SLOW AND STEADY. C/O CHEST AND LEFT ARM PAIN. NO FURTHER NEEDS EXPRESSED. ORIENTED TO ROOM. SNACK PROVIDED. CALL LIGHT IN REACH. WILL CTM.
[2019-08-08 22:33] VITALS: BP 178/87; Ht 157.5 cm; Wt 64.1 kg
[2019-08-08 23:45] LABS: CKMB 0.6 U/L (0.0-3.6); CREATINE KINASE 92 UL (21-215); TROPONIN-I 0.024 ng/mL (0.000-0.060)
[2019-08-09 00:30] VITALS: BP 172/81
[2019-08-09 04:45] VITALS: BP 154/76
[2019-08-09 05:03] LABS: HEMATOCRIT 39.8 % (36.0-48.0); IMMATURE GRANULOCYTES 0.3 % (0-5); MCH 29.2 pg (26.0-34.0); MCHC 32.7 g/dL (31.0-37.0); MCV 89.4 fL (80.0-100.0); MEAN PLATELET VOLUME 9.9 fL (7.4-10.4); RBC 4.45 10x6/uL (4.00-5.40); RDW 13.9 % (11.5-14.5); WBC 7.3 10x3/uL (4.8-10.8)
[2019-08-09 05:04] LABS: PLATELET COUNT 270 10x3/uL (130-400)
[2019-08-09 05:16] LABS: NEUTROPHILS 41 % (40-80)
[2019-08-09 05:17] LABS: LYMPHOCYTES 42 % (15-50); MONOCYTES 8 % (2-11); PLATELET ESTIMATE NORMAL
[2019-08-09 05:32] LABS: ALKALINE PHOSPHATASE 80 U/L (30-120); ALT (SGPT) 18 U/L (10-68); BILIRUBIN - TOTAL 0.03 mg/dL (0.2-1.3); CALC OSMOLALITY 284 mosm/kg (275-300); CALCIUM 8.7 mg/dL (8.5-10.1); CHLORIDE - SERUM 109 mmol/L (98-107); CKMB 0.5 U/L (0.0-3.6); CREATINE KINASE 80 UL (21-215); GLUCOSE 101 mg/dL (74-106); MAGNESIUM - SERUM 1.9 mg/dL (1.8-2.4); POTASSIUM - SERUM 4.1 mmol/L (3.5-5.1); PROTEIN - SERUM 6.3 g/dL (6.4-8.2); SODIUM 141 mmol/L (136-145); TROPONIN-I 0.023 ng/mL (0.000-0.060); UREA NITROGEN 23 mg/dL (7-18); eGFR NON AFRICAN AMERICAN 63 mL/min (90-120)
[2019-08-09 09:00] VITALS: BP 157/78
[2019-08-09 12:00] VITALS: BP 114/53
[2019-08-09 12:11] LABS: BILIRUBIN NEGATIVE (NEGATIVE); GLUCOSE NEGATIVE (NEGATIVE); KETONE NEGATIVE (NEGATIVE); NITRITE NEGATIVE (NEGATIVE); UROBILINOGEN NORMAL (NORMAL)
[2019-08-09 12:12] LABS: CREATINE KINASE 77 UL (21-215); TROPONIN-I 0.019 ng/mL (0.000-0.060)
[2019-08-09 12:20] LABS: UDS - AMPHET NEGATIVE QUAL (NEGATIVE); UDS - BARB NEGATIVE QUAL (NEGATIVE); UDS - BENZO NEGATIVE QUAL (NEGATIVE); UDS - COCAINE POSITIVE QUAL (NEGATIVE); UDS - OPIATE NEGATIVE QUAL (NEGATIVE); UDS - PCP NEGATIVE QUAL (NEGATIVE); UDS - THC NEGATIVE QUAL (NEGATIVE)
--- NOTE | 2019-08-09 15:29 | NUR ---
I have reviewed this patient and I concur with the Shift Assessment completed by the Licensed Practical Nurse today this shift.
[2019-08-09 16:00] VITALS: BP 126/76
[2019-08-09 20:30] VITALS: BP 108/64
--- NOTE | 2019-08-09 21:41 | NUR ---
INITIAL ROUNDS COMPLETED AT 1910 HRS. PT DENIED ANY DISCOMFORT. ASSESSMENT COMPLETED AT 1944 HRS. VSS. SB PER CM HR 52. ALERT AND ORIENTED TO PERSON, PLACE AND TIME. PAGE. IV TO R HAND SL. LUNGS ESSENTIALLY CTA. PAGE. PALPABLE PERIPHERAL PULSES. PM MEDS GIVEN. PT CURRENTLY IN THE SHOWER. WILL CONTINUE TO MONITOR.
--- NOTE | 2019-08-09 23:35 | NUR ---
PT RESTING WITH EYES CLOSED. RESP EVEN AND REGULAR. SR UP X1, CALL LIGHT WITHIN REACH.
[2019-08-10 00:30] VITALS: BP 175/78
--- NOTE | 2019-08-10 01:30 | NUR ---
PT DECLINED EYE DROPS. CALL LIGHT WITHIN REACH.
--- NOTE | 2019-08-10 04:06 | NUR ---
PT RESTING WITH EYES CLOSED. RESP EVEN AND REGULAR. SR UP X1, CALL LIGHT WITHIN REACH. SHOWER DONE, BED LINENS CHANGED EARLIER IN THE SHIFT.
[2019-08-10 04:30] VITALS: BP 129/61
[2019-08-10 04:43] LABS: BASOPHILS 0.2 % (0-2); EOSINOPHILS 2.2 % (0-7); HEMATOCRIT 43.5 % (36.0-48.0); HEMOGLOBIN 14.3 g/dL (12-16); IMMATURE GRANULOCYTES 0.4 % (0-5); LYMPHOCYTES 46.1 % (15-50); MCH 29.1 pg (26.0-34.0); MCHC 32.9 g/dL (31.0-37.0); MCV 88.6 fL (80.0-100.0); MONOCYTES 10.4 % (2-11); NEUTROPHILS 40.7 % (40-80); PLATELET COUNT 234 10x3/uL (130-400); RBC 4.91 10x6/uL (4.00-5.40)
[2019-08-10 05:07] LABS: ALBUMIN 3.6 g/dL (3.4-5.0); ALKALINE PHOSPHATASE 75 U/L (30-120); ALT (SGPT) 25 U/L (10-68); BILIRUBIN - TOTAL 0.19 mg/dL (0.2-1.3); CALC OSMOLALITY 278 mosm/kg (275-300); CARBON DIOXIDE 26.9 mmol/L (21.0-32.0); CHLORIDE - SERUM 107 mmol/L (98-107); CREATININE - SERUM 0.8 mg/dL (0.6-1.3); GLUCOSE 97 mg/dL (74-106); MAGNESIUM - SERUM 2.2 mg/dL (1.8-2.4); POTASSIUM - SERUM 4.1 mmol/L (3.5-5.1); PROTEIN - SERUM 7.5 g/dL (6.4-8.2); SODIUM 139 mmol/L (136-145); UREA NITROGEN 14 mg/dL (7-18); eGFR NON AFRICAN AMERICAN 81 mL/min (90-120)
--- NOTE | 2019-08-10 06:13 | NUR ---
VSS THROUGHOUT NIGHT. SR/SB PER CM. PT DENIED ANY DISCOMFORT. NEEDS MET; WILL CONTINUE TO MONITOR.
[2019-08-10 08:35] VITALS: BP 139/89
--- NOTE | 2019-08-10 09:31 | CN ---
PATIENT NAME:ANA GRACE MEDICAL RECORD: [id number] : [birth year] LOCATION:[facility] D.2117 ADMIT DATE: 08/09/19 ACCOUNT: [id number] CONSULTING PHYSICIAN: JACQUIE BROWN MD REFERRING PHYSICIAN: IZAIAH VINCENT MD DATE OF CONSULTATION: 08/09/2019 HISTORY OF PRESENT ILLNESS: A 48-year-old female with no known cardiovascular history. She has history of normal angiography approximately 1 year ago via diagnostic angiography here at [facility]. She has a history of hypertension. Previous history of dyslipidemia, admitted with chest pain, somewhat atypical sharp stabbing, not classically pleuritic, worse with inspiration, worse with movement. No recent cough, fever, chills, nonradiating. We are asked to see her concerning her cardiovascular status. PAST MEDICAL HISTORY: Includes; 1. History of hypertension. 2. Hyperlipidemia. ALLERGIES: PENICILLIN. SOCIAL HISTORY: Smokes less than a pack a day. No alcohol. No illicit drug abuse. Does walk on regular basis. MEDICATIONS: Include clonidine 0.1 b.i.d., Seroquel 600 mg p.o. at bedtime, Dilantin 100 mg p.o. b.i.d. REVIEW OF SYSTEMS: The patient reports easy bruising but reports no swollen glands. The patient reports no fever, no night sweats, no significant weight gain, no significant weight loss. No significant exercise tolerance. The patient reports no dry eyes, no irritation, no vision change. Patient reports no difficulty hearing and no ear pain. Patient reports no frequent nose bleeds or nose and sinus problems. Patient reports on arm pain on exertion. No shortness of breath while lying down. No history of heart murmur. Patient reports no cough, no wheezing or coughing up blood. Patient reports no abdominal pain, no vomiting. Normal appetite. No diarrhea and not vomiting blood. No nausea and no constipation. Patient reports no incontinence. No difficulty urinating. No hematuria. No increased frequency. Patient reports no muscle aches. No weakness, no arthralgias, no back pain. No swelling of the extremities. Patient reports no abnormal mole, no jaundice, no rashes. Reports no loss of consciousness. No weakness and no numbness. No seizures, dizziness, or headaches. The patient reports no depression, no sleep disturbance, feeling safe in a relationship and no alcohol abuse. Patient reports on fatigue. Reports no runny nose or sinus pressure. No itching, no hives, and no frequent sneezing. PHYSICAL EXAMINATION: GENERAL: Pleasant female in no acute distress. VITAL SIGNS: Blood pressure 154/76, pulse 69 and regular. HEENT: Normocephalic, atraumatic. NECK: No JVD or bruit. HEART: Regular. Questionable S4 gallop. LUNGS: Good air excursion. ABDOMEN: Soft, nontender. EXTREMITIES: Pulse 2+. No edema. CONSULT REPORT [id number] ANA GRACE IMPRESSION: Chest pain, somewhat atypical historically. Given normal angiography and no ECG changes, we will simply repeat cardiac enzymes. Check 2D echocardiography study for focal wall motion. Thank you for the consultation. TRANSINT:[id number] Voice Confirmation ID: [id number] DOCUMENT ID: [id number] JACQUIE BROWN MD at 0931 CC: [id number] DICTATION DATE: 08/09/19 1033 ANGLE FURNACEMAN: 08/09/19 1228 ADM IN [facility] [address] [place] [address]
--- NOTE | 2019-08-10 10:23 | NUR ---
I have reviewed this patient and I concur with the Shift Assessment completed by the Licensed Practical Nurse today this shift.
[2019-08-10 13:47] VITALS: BP 137/80
[2019-08-10 18:07] VITALS: BP 145/76
[2019-08-10 20:54] VITALS: BP 118/69
--- NOTE | 2019-08-10 21:47 | NUR ---
INITIAL ROUNDS COMPLETED AT 1915 HRS. PT RESTING WITH EYES CLOSED. RESP EVEN AND REGULAR. ASSSESSMENT COMPLETED AT 1950 HRS. VSS. SR PER CM HR 81. ALERT AND ORIENTED TO PERSON, PLACE AND TIME. PAGE. IV TO R HAND SL. LUNGS CTA. PM MEDS GIVEN. CATAPRES HELD SBP 118. PT REFUSED HS SEROQUEL. PT CURRENTLY RESTING WITH EYES CLOSED. RESP EVEN AND REGULAR. SR UP X1,CALL LIGHT WITHIN REACH.
--- NOTE | 2019-08-10 23:27 | NUR ---
PT RESTING WITH EYES CLOSED. RESP EVEN AND REGULAR. CALL LIGHT WITHIN REACH.
[2019-08-11] VITALS: BP 142/76
--- NOTE | 2019-08-11 01:00 | NUR ---
PT RESTING WITH EYES CLOSED. RESP EVEN AND REGULAR. CALL LIGHT WITHIN REACH.
--- NOTE | 2019-08-11 03:24 | NUR ---
PT RESTING WITH EYES CLOSED. RESP EVEN AND REGULAR. CALL LIGHT WITHIN REACH.
[2019-08-11 04:00] VITALS: BP 138/76
--- NOTE | 2019-08-11 05:54 | NUR ---
VSS THROUGHOUT NIGHT. SR PER CM. PT DENIED ANY DISCOMFORT. RESTED WELL DURING SHIFT. NEEDS MET; WILL CONTINUE TO MONITOR.
[2019-08-11 06:39] LABS: BASOPHILS 0.6 % (0-2); EOSINOPHILS 1.9 % (0-7); HEMATOCRIT 45.4 % (36.0-48.0); IMMATURE GRANULOCYTES 0.6 % (0-5); LYMPHOCYTES 38.5 % (15-50); MCH 29.6 pg (26.0-34.0); MCV 89.7 fL (80.0-100.0); MEAN PLATELET VOLUME 10.1 fL (7.4-10.4); NEUTROPHILS 46.4 % (40-80); RBC 5.06 10x6/uL (4.00-5.40); RDW 14.2 % (11.5-14.5); WBC 5.4 10x3/uL (4.8-10.8)
[2019-08-11 06:53] LABS: PLATELET COUNT 281 10x3/uL (130-400)
[2019-08-11 06:56] LABS: ALBUMIN 3.4 g/dL (3.4-5.0); ANION GAP 7.6 mmol/L (8-16); BILIRUBIN - TOTAL 0.18 mg/dL (0.2-1.3); CALCIUM 9.1 mg/dL (8.5-10.1); CARBON DIOXIDE 32.5 mmol/L (21.0-32.0); CREATININE - SERUM 0.9 mg/dL (0.6-1.3); MAGNESIUM - SERUM 2.2 mg/dL (1.8-2.4); POTASSIUM - SERUM 4.1 mmol/L (3.5-5.1); PROTEIN - SERUM 7.4 g/dL (6.4-8.2)
--- NOTE | 2019-08-11 07:15 | NUR ---
RECEIVED PT IN BED AAOX4 RESP UNLABORED SKIN W/D COLOR WNL DENIES ANY NEEDS OR DISCOMFORT AT THIS TIME
--- NOTE | 2019-08-11 13:30 | NUR ---
REVIEWED DISCHARGE INSTRUCTIONS WITH PATIENT STATES UNDERSTANDING COPY GIVEN DCD SALINE LOCK TO RT HAND WITH IV CATH INTACT SITE FREE OF REDNESS OR EDEMA PT DISCHARGED HOME IN STABLE CONDITION WITH ALL PERSONAL BELONGINGS LEFT UNIT VIA W/C
--- NOTE | 2019-08-12 15:03 | EC ---
PATIENT:ANA GRACE DATE OF SERVICE: 08/09/19 SEX: F MEDICAL RECORD: [id number] DATE OF : [birth year] LOCATION:D.M2 D.211 AGE OF PATIENT: 48 ADMISSION DATE: 08/09/19 REFERRING PHYSICIAN: INTERPRETING PHYSICIAN: JACQUIE BROWN MD ECHOCARDIOGRAM REPORT ECHO CHARGES 5 ECHO LIMITED Date: 08/09/19 CLINICAL DIAGNOSIS: CHEST PAIN HX CAD ASSESS EF ECHOCARDIOGRAPHIC MEASUREMENTS (adult normal given) AC root (d.<3.7cm) 2.9 cm LV Septum d (<1.2 cm> 1.2 cm Valve Excursion 1.4 cm LV Septum (systole) 1.4 cm Left Atria (s.<4.0cm> cm LVPW d(<1.2cm) 1.2 cm RV (d.<2.3cm) cm LVPW (sytole) 1.5 cm LV diastole(<5.6CM) 3.5 cm MV E-F(>70mm/sec) cm LV systole 2.11 cm LVOT Diameter cm MV exc.(>10mm) 1.5 cm Est.ejection fraction (50-75%) % DOPPLER: LVIT cm/sec A cm/sec E cm/sec LA cm/sec RVSP mmHg LVOT cm/sec AOP1/2T m/s Asc. Ao cm/sec RVOT cm/sec RA cm/sec PA cm/sec AV Gradient Peak mmHg AV Mean mmHg AV Area cm MV Gradient Peak mmHg MV Mean mmHg MV Area cm COMMENTS: Technical Support Specialist: 2 SPENCER MADR[employer] Manufacturing Supervisor: 3 Dr. Huffman TAPE# PACS Pericardial Effusion N DATE OF SERVICE: Limited 2D, color flow. Grossly, no LVH. LV internal dimension is normal. Wall motion is normal. EF is greater than or equal to 55%. Aortic valve is tricuspid with good valve excursion. Left atrium appears normal. Mitral valve shows no prolapse and good valve excursion. Right-sided chambers are grossly normal. TRANSINT:[id number] Voice Confirmation ID: [id number] DOCUMENT ID: [id number] ECHOCARDIOGRAM REPORT [id number] ANA GRACE JACQUIE BROWN MD at 1503 CC: [id number] DICTATION DATE: 08/10/19 1008 CARTOON DESIGNER: 08/10/19 1353 DIS IN 08/11/19 [facility] [address] [place]
== END 2019-08-11 13:30 | disposition home or self-care (01) | DRG 311 ==
LOC: D.ER 17:18 → D.M2 19:18 → OBSVTIME 19:18 → D.M2 08-09 20:02
PROVIDERS: Family Medicine; ADMIT Family Medicine; ATTEND Family Medicine
DX: I20.0 Unstable angina (principal); F17.213 Nicotine dependence, cigarettes, with withdrawal; I08.0 Rheumatic disorders of both mitral and aortic valves; G40.909 Epilepsy, unspecified, not intractable, without status epilepticus; F14.90 Cocaine use, unspecified, uncomplicated; E78.5 Hyperlipidemia, unspecified; I12.9 Hypertensive chronic kidney disease with stage 1 through stage 4 chronic kidney disease, or unspecified chronic kidney disease; N18.3 Chronic kidney disease, stage 3 (moderate); Z86.73 Personal history of transient ischemic attack (TIA), and cerebral infarction without residual deficits

== ENCOUNTER 2019-11-20 20:10 | Emergency (ER) | payer MEDICAID ==
[~2019-11-20] VITALS: Ht 157.5 cm; Wt 63.6 kg
[2019-11-20 20:16] VITALS: Ht 157.5 cm; Wt 63.6 kg
[2019-11-20 21:35] LABS: BASOPHILS 0.2 % (0-2); EOSINOPHILS 0.1 % (0-7); HEMATOCRIT 42.3 % (36.0-48.0); HEMOGLOBIN 14.5 g/dL (12-16); IMMATURE GRANULOCYTES 0.4 % (0-5); LYMPHOCYTES 11.1 % (15-50); MCH 30.1 pg (26.0-34.0); MCHC 34.3 g/dL (31.0-37.0); MCV 87.9 fL (80.0-100.0); MEAN PLATELET VOLUME 9.4 fL (7.4-10.4); MONOCYTES 5.9 % (2-11); NEUTROPHILS 82.3 % (40-80); PLATELET COUNT 309 10x3/uL (130-400); RBC 4.81 10x6/uL (4.00-5.40); RDW 13.5 % (11.5-14.5); WBC 19.1 10x3/uL (4.8-10.8)
[2019-11-20 21:44] LABS: ANION GAP 10.4 mmol/L (8-16); CALCIUM 9.7 mg/dL (8.5-10.1); CARBON DIOXIDE 25.5 mmol/L (21.0-32.0); CREATININE - SERUM 1.2 mg/dL (0.6-1.3); POTASSIUM - SERUM 3.9 mmol/L (3.5-5.1)
[2019-11-20 21:50] LABS: BILIRUBIN - TOTAL 0.26 mg/dL (0.2-1.3); PROTEIN - SERUM 8.4 g/dL (6.4-8.2)
[2019-11-20 22:22] LABS: BILIRUBIN NEGATIVE (NEGATIVE); KETONE NEGATIVE (NEGATIVE); NITRITE NEGATIVE (NEGATIVE); UROBILINOGEN NORMAL mg/dL (< 2)
[2019-11-20] MEDS ORDERED: OMNICEF300 MG PO (22:52)
[2019-11-21 00:16] VITALS: BP 122/55
== END 2019-11-21 00:16 | disposition home or self-care (01) ==
LOC: D.ER 20:10
PROVIDERS: Emergency Medicine
DX: R50.9 Fever, unspecified (principal); E87.1 Hypo-osmolality and hyponatremia; D72.829 Elevated white blood cell count, unspecified; Z20.828 Contact with and (suspected) exposure to other viral communicable diseases; Z86.73 Personal history of transient ischemic attack (TIA), and cerebral infarction without residual deficits; I10 Essential (primary) hypertension; Z72.0 Tobacco use; R51 Headache

== ENCOUNTER 2020-07-12 17:16 | Emergency (ER) | payer BC ==
[~2020-07-12] VITALS: Ht 157.5 cm; Wt 71.4 kg
[~2020-07-12 17:16] MED LIST changes: +OMNICEF300 MG PO
[2020-07-12 17:19] VITALS: Ht 157.5 cm; Wt 71.4 kg
[2020-07-12 17:57] LABS: APTT 31.6 SECONDS (22.8-39.4); CALC OSMOLALITY 288 mosm/kg (275-300); CALCIUM 8.8 mg/dL (8.5-10.1); CARBON DIOXIDE 28.7 mmol/L (21.0-32.0); CHLORIDE - SERUM 109 mmol/L (98-107); CREATININE - SERUM 0.9 mg/dL (0.6-1.3); GLUCOSE 85 mg/dL (74-106); INR 1.01 (0.85-1.17); POTASSIUM - SERUM 4.1 mmol/L (3.5-5.1); PROTIME 12.3 SECONDS (11.6-15.0); SODIUM 145 mmol/L (136-145); UREA NITROGEN 14 mg/dL (7-18); eGFR NON AFRICAN AMERICAN 71 mL/min (90-120)
[2020-07-12 18:08] LABS: BASOPHILS 0.8 % (0-2); EOSINOPHILS 1.6 % (0-7); HEMATOCRIT 39.4 % (36.0-48.0); HEMOGLOBIN 13.1 g/dL (12-16); LYMPHOCYTES 26.9 % (15-50); MCH 29.3 pg (26.0-34.0); MCHC 33.1 g/dL (31.0-37.0); MCV 88.4 fL (80.0-100.0); MEAN PLATELET VOLUME 8.2 fL (7.4-10.4); MONOCYTES 9.7 % (2-11); PLATELET COUNT 267 10x3/uL (130-400); RBC 4.46 10x6/uL (4.00-5.40); RDW 14.8 % (11.5-14.5); WBC 7.2 10x3/uL (4.8-10.8)
[2020-07-12 18:13] LABS: ALBUMIN 3.5 g/dL (3.4-5.0); ALKALINE PHOSPHATASE 106 U/L (30-120); ALT (SGPT) 35 U/L (10-68); CKMB 0.8 U/L (0.0-3.6); CREATINE KINASE 87 UL (21-215); MAGNESIUM - SERUM 2.3 mg/dL (1.8-2.4)
[2020-07-12 18:15] LABS: TROPONIN-I < 0.017 ng/mL (0.000-0.060)
[2020-07-12] MEDS ORDERED: OMNICEF300 MG PO (18:48)
[2020-07-12 19:15] VITALS: BP 166/61
== END 2020-07-12 19:17 | disposition home or self-care (01) ==
LOC: D.ER 17:16
PROVIDERS: Family Medicine
DX: J18.9 Pneumonia, unspecified organism (principal); R07.9 Chest pain, unspecified; Z86.73 Personal history of transient ischemic attack (TIA), and cerebral infarction without residual deficits; I10 Essential (primary) hypertension

== ENCOUNTER 2020-07-18 16:35 | Emergency (ER) | payer BC ==
[~2020-07-18] VITALS: Ht 157.5 cm; Wt 64.9 kg
[2020-07-18 16:45] VITALS: BP 142/94; Ht 157.5 cm; Wt 64.9 kg
[2020-07-18 17:19] LABS: HCG URINE NEGATIVE (NEGATIVE)
[2020-07-18 17:20] LABS: BACTERIA MANY HPF (NONE SEEN); BILIRUBIN NEGATIVE (NEGATIVE); KETONE NEGATIVE (NEGATIVE); NITRITE NEGATIVE (NEGATIVE); UROBILINOGEN NORMAL mg/dL (< 2)
[2020-07-18 17:25] LABS: UDS - AMPHET NEGATIVE QUAL (NEGATIVE); UDS - BARB NEGATIVE QUAL (NEGATIVE); UDS - BENZO NEGATIVE QUAL (NEGATIVE); UDS - COCAINE POSITIVE QUAL (NEGATIVE); UDS - OPIATE NEGATIVE QUAL (NEGATIVE); UDS - PCP NEGATIVE QUAL (NEGATIVE); UDS - THC NEGATIVE QUAL (NEGATIVE)
[2020-07-18 17:30] LABS: BASOPHILS 1.1 % (0-2); HEMATOCRIT 39.9 % (36.0-48.0); HEMOGLOBIN 13.2 g/dL (12-16); LYMPHOCYTES 33.4 % (15-50); MCH 29.1 pg (26.0-34.0); MCHC 33.2 g/dL (31.0-37.0); MCV 87.8 fL (80.0-100.0); MEAN PLATELET VOLUME 7.5 fL (7.4-10.4); MONOCYTES 11.3 % (2-11); NEUTROPHILS 52.2 % (40-80); RBC 4.54 10x6/uL (4.00-5.40); RDW 14.9 % (11.5-14.5); WBC 7.7 10x3/uL (4.8-10.8)
[2020-07-18 17:33] LABS: PLATELET COUNT 323 10x3/uL (130-400)
[2020-07-18 17:39] LABS: ANION GAP 13.1 mmol/L (8-16); CALCIUM 8.9 mg/dL (8.5-10.1); CARBON DIOXIDE 26.8 mmol/L (21.0-32.0); CREATININE - SERUM 0.9 mg/dL (0.6-1.3); POTASSIUM - SERUM 3.9 mmol/L (3.5-5.1)
[2020-07-18 17:46] LABS: ALBUMIN 3.7 g/dL (3.4-5.0); MAGNESIUM - SERUM 2.3 mg/dL (1.8-2.4); PROTEIN - SERUM 7.9 g/dL (6.4-8.2)
[2020-07-18 17:52] LABS: BILIRUBIN - TOTAL 0.08 mg/dL (0.2-1.3)
== END 2020-07-18 18:27 | disposition home or self-care (01) ==
LOC: D.ER 16:35
PROVIDERS: Family Medicine
DX: R44.1 Visual hallucinations (principal); I10 Essential (primary) hypertension; Z86.73 Personal history of transient ischemic attack (TIA), and cerebral infarction without residual deficits; Z72.0 Tobacco use; F14.10 Cocaine abuse, uncomplicated

== ENCOUNTER → 2020-07-22 09:04 | Outpatient (CLI) | payer BC ==
[2020-07-18 16:45] VITALS: BMI 28.8
== END | disposition home or self-care (01) ==
LOC: D.HCCECHO 07-13 11:30
PROVIDERS: ATTEND Internal Medicine Cardiovascular Disease
DX: I10 Essential (primary) hypertension (principal)

== ENCOUNTER → 2020-08-11 12:42 | Outpatient (CLI) | payer BC ==
[2020-07-18 16:45] VITALS: BMI 28.8
== END | disposition home or self-care (01) ==
LOC: D.US 12:42
PROVIDERS: ATTEND Nurse Practitioner
DX: I73.9 Peripheral vascular disease, unspecified (principal)